=== PATIENT | female | born 1980 | race Caucasian/White ===

== ENCOUNTER 2019-08-02 06:30 | Observation (INO) | payer OTHER ==
[~2019-08-02] VITALS: Ht 172.7 cm; Wt 77.1 kg
--- NOTE | ~2019-08-02 | OP ---
[address] [address] OPERATIVE REPORT Name: MARTHA HERNANDEZ Room: [address] Asad Garrison#: [id number] Admission: 08/02/19 Attend Phys: Dragan Kaye Discharge: 08/02/19 Date of : 80 Report #: [id number] THIS REPORT FOR: //name// CC: Tho Jacobson DICTATED BY: RESIDENT Sam DO DATE OF SERVICE: 08/02/2019 PREOPERATIVE DIAGNOSIS: Advanced degenerative joint disease, patellofemoral joint, left knee. POSTOPERATIVE DIAGNOSIS: Advanced degenerative joint disease, patellofemoral joint, left knee. PROCEDURE: Left patellofemoral arthroplasty utilizing a Janneth patellofemoral joint replacement system with a size 1 femoral component and 29 mm 3 peg patella. SURGEON: Tho Easton DO. PELLETISING EXTRUDER OPERATOR: Augustin Banda DO. COMPLICATIONS: None. DRAINS: None. ESTIMATED BLOOD LOSS: Minimal. ANESTHESIA: General. CONDITION: The patient is stable to PACU. INDICATIONS FOR PROCEDURE: The patient is a pleasant 39-year-old female seen in my clinic regarding chronic history of left knee pain. She unfortunately failed extensive conservative treatment. She underwent previous left knee arthroscopy, which demonstrated significant degenerative changes mainly to the patellofemoral joint at that time. The remainder of the knee cartilage did appear to be healthy. She had continued pain despite these interventions and I have discussed potential benefit of left patellofemoral arthroplasty versus total knee arthroplasty. I discussed procedure, risks, benefits, complications and indications in detail with her. Risks discussed include but not limited to infection, neurovascular injury, hardware failure, fracture, arthrofibrosis, no improvement in symptoms, continued or worsening pain, need for further surgery, [place] [address] OPERATIVE REPORT Name: MARTHA HERNANDEZ [address] [id number] Admission: 08/02/19 Attend Phys: Dragan Kaye Discharge: 08/02/19 Date of : 80 Report #: [id number] DVT, PE, and/or anesthesia complications. She did express understanding and wished to proceed with surgery. DESCRIPTION OF PROCEDURE: After consent was obtained, the patient was taken to the operative suite and placed in supine position on operating room table. She was given benefit of general anesthesia. A well-padded tourniquet was placed on left upper thigh. Left leg was sterilely prepped and draped in usual fashion. Preop timeout was obtained to confirm the correct patient, procedure and operative site. Surgery began with elevation of the tourniquet to 300 mmHg. Standard anterior knee midline incision was made. Sharp dissection was taken down to the level of capsule. A new knife was used and a medial parapatellar arthrotomy was performed. Great care was taken not to damage any of the cartilage or menisci upon capsulotomy. The patella was then gently everted. She did have near global softening and delamination of the posterior patellar surface. This was quite unstable. She had wear of the trochlea as well. The medial and lateral joints were thoroughly inspected and were without significant pathology. The menisci were intact and her ligaments were intact. At this time, I elected to proceed with patellofemoral arthroplasty. We first utilized the intramedullary guide and the stylus was placed on the appropriate position on the anterior distal femur. Our anterior cut was then made with the oscillating saw. Then, the size 1 nail was then pinned into place to appropriate position. Once confirmed to be in good position, the nail was then used to desiree out the area for the trochlear implant. We then utilized the guide to drill the appropriate peg holes. The size 1 trial was then impacted into place. This did sit flush with the remainder of the cartilage and did fit the distal femur nicely. The patella was then everted. Posterior patellar cut was then made using freehand technique, this measured size 29. Three peg holes were drilled, size 29 button was placed. The knee was taken through range of motion and the patella did track very well. There was no significant instability or chronic patellar clunk noted. Once we were happy with this, the trial components were then removed. The knee was thoroughly irrigated with pulsatile lavage and dried with clean lap sponge. One bag of Biomet bone cement was then mixed and placed on the exposed bone and the final components. The final components were then impacted and pressure was held until the cement cured. The knee was then taken through final range of motion and again the patella did track well without any noticeable patellar clunk. The wound was then thoroughly irrigated with sterile saline. Tourniquet was allowed to deflate. Hemostasis was achieved with electrocautery and direct pressure. Capsular tissue was closed with #1 Vicryl in [id number] fashion. Subcutaneous tissue was closed with 2-0 Vicryl in interrupted fashion followed by running Monocryl stitch on the skin. This was covered with Dermabond, was allowed to dry and Mepilex silver dressing. She did [place] [address] OPERATIVE REPORT Name: MARTHA HERNANDEZ Room: [address] Asad Garrison#: [id number] Admission: 08/02/19 Attend Phys: Dragan Kaye Discharge: 08/02/19 Date of : 80 Report #: [id number] without complication. She was taken to recovery room in stable condition. All needle and sponge counts correct x 2 at the end of the procedure. By: [id number] 1958Tho Easton DO /nt
[~2019-08-02 06:30] MED LIST: AMBIEN 10 MG TA10 MG PO; AMOXICILLIN875 MG PO; EFFEXOR XR150 MG PO; ESKALITH CR450 MG PO; FLEXERIL PO; KLONOPIN0.5 MG PO; KLONOPIN1 MG PO; MEDROLDOSEPACK PO; MULTIVITAMINS; NOHOMEMEDICATIONS; NORCO 5-325 TA1 EACH PO; NORFLEX100 MG PO; PENICILLIN VK500 M1 PO; PREDNISONE 10 M10 MG PO; PROAIR HFA8.5 GM INH; PROVERA10 MG PO; SEROQUEL XR 30300 M1 PO; TRAMADOL 50 MG50 MG PO; TRAZODONE HCL100 MG PO; VITAMIN D35000 UNI1 PO
[2019-08-02 09:03] LABS: INR 0.9; PROTIME 9.5 Seconds (9.20-11.50)
[2019-08-02 14:59] VITALS: BP 113/63
--- NOTE | 2019-08-02 16:49 | NUR ---
PT ALERT AND ORIENTED AND DROWSY. PAIN MEDS GIVEN ORDERED. FALL RISK PRECAUTIONS IN PLACE. HOURLY ROUNDING COMPLETED. WILL CONTINUE TO MONITOR.
[2019-08-02] MEDS ORDERED: ULTRAM 50MG TAB50 MG PO (17:35)
[2019-08-02] MEDS ORDERED: OXYCODONE HCL 55 MG PO (17:35)
[2019-08-02 17:55] VITALS: BP 113/63
[2019-08-02] MEDS ORDERED: ASPIRIN EC325 M1 PO (17:59)
--- NOTE | 2019-08-02 18:12 | NUR ---
PT GIVEN DISCHARGE INFORMATION, CARE NOTES, AND PRESCRIPTIONS. IV REMOVED. PT ORDERED TO TAKE ASPIRIN TOMORROW PER ORTHO. PT BELONGINGS GATHERED. PT LEFT VIA WHEELCHAIR WITH NURSING STAFF TO HOME WITH OUTPATIENT THERAPY. FALL RISK PRECAUTIONS IN PLACE. HOURLY ROUNDING COMPLETED.
[2019-08-02 18:27] VITALS: BP 113/63
== END 2019-08-02 18:28 | disposition home or self-care (01) ==
LOC: M.PRE 06:30 → M.TBA 07:59 → M.PRE 08:55 → M.ORTHSURG 11:48 → M.TBA 11:48 → M.PRE 13:12 → M.ORTHSURG 14:30
PROVIDERS: Anesthesiology; ADMIT Internal Medicine
DX: M17.12 Unilateral primary osteoarthritis, left knee (principal); F41.9 Anxiety disorder, unspecified; F32.9 Major depressive disorder, single episode, unspecified; Z79.899 Other long term (current) drug therapy; Z87.891 Personal history of nicotine dependence

== ENCOUNTER → 2020-09-07 | Outpatient (CLI) | payer OTHER ==
[~2020-09-07] MED LIST changes: +ASPIRIN EC325 M1 PO; +OXYCODONE HCL 55 MG PO; +ULTRAM 50MG TAB50 MG PO
== END ==
LOC: M.LAB 08:18
PROVIDERS: ATTEND Orthopaedic Surgery
DX: Z01.812 Encounter for preprocedural laboratory examination (principal); Z20.822 Contact with and (suspected) exposure to COVID-19; M65.162 Other infective (teno)synovitis, left knee

== ENCOUNTER → 2020-10-09 | Outpatient (CLI) | payer OTHER ==
[~2020-10-09] MED LIST changes: +HYDROCODON-ACE1 EAC7 PO
== END ==
LOC: M.PC 10:10
PROVIDERS: ATTEND Physical Medicine & Rehabilitation
DX: M17.12 Unilateral primary osteoarthritis, left knee (principal); G62.9 Polyneuropathy, unspecified; Z87.39 Personal history of other diseases of the musculoskeletal system and connective tissue

== ENCOUNTER → 2020-10-30 | Outpatient (CLI) | payer OTHER | END | disposition home or self-care (01) | LOC: M.PC 10:00 | PROVIDERS: ATTEND Physical Medicine & Rehabilitation | DX: M25.562 Pain in left knee (principal); M17.12 Unilateral primary osteoarthritis, left knee; J45.909 Unspecified asthma, uncomplicated; F41.9 Anxiety disorder, unspecified; F31.9 Bipolar disorder, unspecified; Z98.890 Other specified postprocedural states; Z79.899 Other long term (current) drug therapy; Z87.891 Personal history of nicotine dependence; Z88.8 Allergy status to other drugs, medicaments and biological substances ==

== ENCOUNTER 2021-04-04 10:58 | Emergency (ER) | payer OTHER ==
[~2021-04-04] VITALS: Ht 172.7 cm; Wt 74.8 kg
[2021-04-04 12:48] LABS: ABSOLUTE BASOPHILS 0.1 thou/uL (0.0-0.2); ABSOLUTE EOSINOPHILS 0.2 thou/uL (0.0-0.7); ABSOLUTE LYMPHOCYTES 1.5 thou/uL (0.8-5.3); ABSOLUTE MONOCYTES 0.5 thou/uL (0.0-1.2); ABSOLUTE NEUTROPHILS 4.7 thou/uL (1.6-8.1); EOSINOPHILS 2.8 %; HEMATOCRIT 48.3 % (37.0-47.0); HEMOGLOBIN 15.7 gm/dL (12.0-15.0); LYMPHOCYTES 21.4 %; MCH 28.8 pg (26.0-34.0); MCHC 32.5 g/dL (28.0-37.0); MCV 88.5 fL (80.0-100.0); MONOCYTES 6.8 %; MPV 7.3 fl. (7.2-11.1); NUCLEATED RBCS 0 /100WBC; PLATELET COUNT* 363 thou/uL (150-400); RBC 5.46 mil/uL (4.20-5.00); RDW-CV 13.5 % (10.5-14.5); WBC 6.9 thou/uL (4.0-11.0)
[2021-04-04 13:04] LABS: CALCIUM 8.5 mg/dL (8.5-10.1); CREATININE 1.1 mg/dL (0.6-1.3); POTASSIUM 4.2 mmol/L (3.5-5.1)
--- NOTE | 2021-04-04 13:13 | EKG ---
[place] [address] ELECTROCARDIOGRAM REPORT Name: MARTHA HERNANDEZ Room: [facility]#: [id number] Admission: 04/04/21 Attend Phys: Discharge: Date of : 80 Date of Service: 04/04/21 1229 Report #: [id number] THIS REPORT FOR: //name// [facility] ED Test Date: 2021-04-04 Test Time: 12:29:02 Pat Name: MARTHA HERNANDEZ Department: Room: Gender: F Fabrication Specialist: : 1980 Requested By: Kavya Alcantara Order Number: [id number] MD: Tho Doss Measurements Intervals Rose Rate: 72 P: 0 AR: 170 QRS: 50 QRSD: 147 T: 47 QT: 436 QTc: 478 Interpretive Statements Sinus rhythm artifact noted Nonspecific intraventricular conduction delay Compared to ECG 06/16/2008 22:38:36 no change Electronically Signed On 04-04-2021 13:13:33 CDT by Tho Doss [email or web address] <ELECTRONICALLY SIGNED> By: Tho Doss MD, [facility] 04/04/21 1313 1229 1229 Toh Doss MD, [facility] /EPI
[2021-04-04 13:15] LABS: ALBUMIN 3.8 g/dL (3.4-5.0); TOTAL BILIRUBIN 0.5 mg/dL (<0.1-1.0); TOTAL PROTEIN 7.5 g/dL (6.4-8.2)
[2021-04-04] MEDS ORDERED: TESSALON PERLE100 MG PO (16:28)
[2021-04-04 16:38] VITALS: BP 134/73
== END 2021-04-04 16:39 | disposition home or self-care (01) ==
LOC: M.ERS 10:58
PROVIDERS: Nurse Practitioner Family
DX: B34.9 Viral infection, unspecified (principal); Z20.822 Contact with and (suspected) exposure to COVID-19; Z88.1 Allergy status to other antibiotic agents; Z88.8 Allergy status to other drugs, medicaments and biological substances; Z98.890 Other specified postprocedural states